=== PATIENT | male | born 1975 ===

== ENCOUNTER 2018-09-19 08:36 | Emergency (ER) | payer OTHER ==
[2018-09-19 08:45] VITALS: BMI 24.4
[2018-09-19 11:00] LABS: BASO % 0.5 % (0.0-2.0); EOS % 0.8 % (0.0-4.0); HEMOGLOBIN 15.8 g/dL (12.0-18.0); LYMPH # 1.1 K/uL (1.0-4.3); LYMPH % 19.7 % (20.0-40.0); MEAN CELL VOLUME 87.6 fl (80.0-94.0); MEAN CORPUSCULAR HEMOGLOBIN 29.9 pg (27.0-31.0); MEAN CORPUSCULAR HGB CONC 34.2 g/dL (33.0-37.0); MEAN PLATELET VOLUME 7.7 fl (7.2-11.7); MONO # 0.3 K/uL (0.0-0.8); MONO % 5.3 % (0.0-10.0); NEUT # 4.2 K/uL (1.8-7.0); NEUT % 73.7 % (50.0-75.0); NRBC % 1.8 % (0.0-0.0); RBC 5.28 Mil/uL (4.40-5.90); RED CELL DISTRIBUTION WIDTH 13.4 % (11.5-14.5); WHITE BLOOD COUNT 5.7 K/uL (4.8-10.8)
[2018-09-19 11:08] LABS: ALB/GLOB RATIO 1.2 (1.0-2.1); ALBUMIN 4.6 g/dL (3.5-5.0); ALT/SGPT 41 U/L (21-72); AST/SGOT 30 U/L (17-59); BLOOD UREA NITROGEN 11 mg/dl (9-20); CALCIUM 9.5 mg/dL (8.4-10.2); GFR NON-AFRICAN AMERICAN > 60; LIPASE 60 U/L (23-300)
[2018-09-19 11:36] LABS: URINE BILIRUBIN NEGATIVE (NEGATIVE); URINE BLOOD NEGATIVE (NEGATIVE); URINE CLARITY CLEAR (Clear); URINE COLOR YELLOW (YELLOW); URINE GLUCOSE (UA) NEG (Normal); URINE LEUKOCYTE ESTERASE NEG Leu/uL (Negative); URINE PROTEIN NEGATIVE (NEGATIVE); URINE UROBILINOGEN 0.2-1.0 mg/dL (0.2-1.0)
--- NOTE | 2018-09-19 11:49 | ED PDOC ---
HPI: Abdomen Time Seen by Provider: 09/19/18 09:00 Chief Complaint (Nursing): Abdominal Pain Chief Complaint (Provider): Abdominal Pain History Per: Senior Environmental Technician (Jason Samuel [id number]) Current Symptoms Are (Timing): Still Present Additional Complaint(s): Pérez Botello is 43 year old male with a past medical history of Hyperlipidemia, who presents to the emergency room complaining of not feeling well. Patient states he felt sick and that he had no other place will take him. He complains of abdominal pain and chest pain which has been going on for many years. pt state this pain is no different than his usual abdominal pain that is chronic. no fever. vomiting or diarrhea. no chest pain at this time. no anorexia or weight loss PMD: no provider Past Medical History Reviewed: Historical Data, Nursing Documentation, Vital Signs Vital Signs: Last Vital Signs Temp 97.6 F 09/19/18 08:44 Pulse 78 09/19/18 08:44 Resp 18 09/19/18 08:44 BP 142/89 09/19/18 08:44 Pulse Ox 99 09/19/18 08:44 - Medical History PMH: Hyperlipidemia Denies: Chronic Kidney Disease - Surgical History Surgical History: No Surg Hx - Family History Family History: States: Unknown Family Hx - Social History Current smoker - smoking cessation education provided: No Alcohol: None (last drink x5 years ago) Drugs: Denies - Allergies Allergies/Adverse Reactions: Allergies Allergy/AdvReac Type Severity Reaction Status Date / Time No Known Allergies Allergy Verified 09/19/18 09:13 Review of Systems ROS Statement: Except As Marked, All Systems Reviewed And Found Negative Constitutional: Negative for: Fever Cardiovascular: Positive for: Chest Pain Gastrointestinal: Positive for: Abdominal Pain. Negative for: Vomiting, Diarrhea Physical Exam - Reviewed Nursing Documentation Reviewed: Yes Vital Signs Reviewed: Yes - Physical Exam Appears: Positive for: Non-toxic, No Acute Distress Head Exam: Positive for: ATRAUMATIC, NORMOCEPHALIC Skin: Positive for: Normal Color, Warm, Dry Eye Exam: Positive for: Normal appearance, EOMI, PERRL ENT: Positive for: Normal ENT Inspection Neck: Positive for: Normal, Painless ROM, Supple Cardiovascular/Chest: Positive for: Regular Rate, Rhythm. Negative for: Murmur Respiratory: Positive for: Normal Breath Sounds. Negative for: Respiratory Distress Gastrointestinal/Abdominal: Positive for: Normal Exam, Bowel Sounds, Soft. Negative for: Tenderness, Distended, Guarding, Rebound, Asicites Male Genital Exam: Negative for: no hernia Back: Positive for: Normal Inspection. Negative for: L CVA Tenderness, R CVA Tenderness, Vertebral Tenderness Extremity: Positive for: Normal ROM. Negative for: Pedal Edema, Deformity Neurologic/Psych: Positive for: Alert, Oriented (x3). Negative for: Motor/Sensory Deficits - Laboratory Results Result Diagrams: 09/19/18 10:50 09/19/18 10:50 - ECG ECG Rhythm: Positive for: Sinus Rhythm (normal ) Rate: 64 O2 Sat by Pulse Oximetry: 99 (RA) Pulse Ox Interpretation: Normal Medical Decision Making Medical Decision Making: Initial Time: 10:23 Plan: abdominal pain, non tender exam. pain is chronic --Toradol 15 mg IV --Urine culture --Urinalysis --Cbc with differential --EKG --Lipase --CMP 12:32 --Troponin I Provider reviewed the ekg, urine and labs, which show benign results. \ pt tolerating po. abdomen normal exam. the patient is stable to go home. given follo wup in the clinic (pt has no insurance referred to [facility]) instructed to return if pain gets worse or any new or concerning symptoms develp. Disposition - Clinical Impression Clinical Impression: Chronic abdominal pain - Patient ED Disposition Is Patient to be Admitted: No Counseled Patient/Family Regarding: Studies Performed, Diagnosis, Need For Followup - Disposition Referrals: [facility] [Outside] Disposition: Routine/Home Disposition Time: 12:00 Condition: IMPROVED Additional Instructions: follow up with the clinic in 1-2 days return to the ED with any worsening or concerning symptoms Instructions: Chronic Pain Forms: [employer] (Mexican), [employer] (South Sudanese) Print Language: ITALIAN
[2018-09-19 13:28] VITALS: BP 165/86; RESP 17; TEMP 98.4
--- NOTE | 2018-09-19 18:46 | CARD ---
APPROVED REPORT Date of service: 09/19/2018 EKG Measurement Heart [id number] IN 132P66 [id number] <Conclusion> Normal sinus rhythm Normal ECG
[2018-09-20 18:32] VITALS: PULSE 64; O2SAT 99
== END 2018-09-19 13:41 | disposition home or self-care (01) ==
LOC: H.ER 08:36
DX: R10.9 Unspecified abdominal pain (principal); E78.5 Hyperlipidemia, unspecified; G89.29 Other chronic pain
CPT/HCPCS: 80053; 81003; 83690; 84484; 85025; 87086; 93005; 99284; J1885

== ENCOUNTER 2018-10-27 09:24 | Emergency (ER) | payer OTHER ==
[2018-10-27 09:43] VITALS: BMI 24.3
[2018-10-27] MEDS ORDERED: Iohexol 240 (50 ml) PO ONE (09:59)
[2018-10-27] MEDS ORDERED: Iohexol 240 (50 ml) ONE (10:08)
--- NOTE | 2018-10-27 10:08 | ED PDOC ---
HPI: Abdomen Time Seen by Provider: 10/27/18 09:50 Chief Complaint (Nursing): Abdominal Pain Chief Complaint (Provider): Abdominal Pain History Per: Patient History/Exam Limitations: no limitations Onset/Duration Of Symptoms: Days (x1) Current Symptoms Are (Timing): Constant Location Of Pain/Discomfort: Other (Diffuse) Associated Symptoms: denies: Fever, Vomiting, Diarrhea, Urinary Symptoms Additional Complaint(s): 43 year old male presents to the ED complaining of constant and diffuse abdominal pain that started yesterday. He also reports having intermittent chest pain today but denies pain right now. He denies vomiting and diarrhea. He states he has normal bowel movements with last bowel movement today. Denies urinary problems or fever. PMD: none Past Medical History Reviewed: Historical Data, Nursing Documentation, Vital Signs Vital Signs: Last Vital Signs Temp 98.4 F 10/27/18 09:44 Pulse 70 10/27/18 09:44 Resp 20 10/27/18 09:44 BP 153/88 H 10/27/18 09:44 Pulse Ox 99 10/27/18 09:44 - Medical History PMH: Hyperlipidemia Denies: Chronic Kidney Disease - Surgical History Surgical History: No Surg Hx - Family History Family History: States: Unknown Family Hx - Social History Current smoker - smoking cessation education provided: No Alcohol: None Drugs: Denies - Allergies Allergies/Adverse Reactions: Allergies Allergy/AdvReac Type Severity Reaction Status Date / Time No Known Allergies Allergy Verified 10/27/18 09:49 Review of Systems ROS Statement: Except As Marked, All Systems Reviewed And Found Negative Constitutional: Negative for: Fever Cardiovascular: Positive for: Chest Pain Gastrointestinal: Positive for: Abdominal Pain. Negative for: Vomiting, Diarrhea Genitourinary Male: Negative for: Dysuria, Hematuria Physical Exam - Reviewed Nursing Documentation Reviewed: Yes Vital Signs Reviewed: Yes - Physical Exam Appears: Positive for: Non-toxic, No Acute Distress Head Exam: Positive for: ATRAUMATIC, NORMOCEPHALIC Skin: Positive for: Normal Color, Warm, Dry Eye Exam: Positive for: Normal appearance Neck: Positive for: Normal, Painless ROM Cardiovascular/Chest: Positive for: Regular Rate, Rhythm. Negative for: Chest Non Tender Respiratory: Positive for: Normal Breath Sounds. Negative for: Wheezing, Respiratory Distress Gastrointestinal/Abdominal: Positive for: Tenderness (mildly tender diffusely) Back: Positive for: Normal Inspection. Negative for: L CVA Tenderness, R CVA Tenderness Extremity: Positive for: Normal ROM Neurologic/Psych: Positive for: Alert, Oriented. Negative for: Motor/Sensory Deficits - Laboratory Results Result Diagrams: 10/27/18 10:22 10/27/18 10:22 - ECG O2 Sat by Pulse Oximetry: 99 (RA) Pulse Ox Interpretation: Normal - Progress Re-evaluation Time: 16:41 Condition: Re-examined, Improved Medical Decision Making Medical Decision Making: Initial Impression: Abdominal pain and chest pain Differential for abdominal pain: gastritis, pancreatitis, small bowel obstruction, appendicitis, and colitis; for chest pain: ACS, pulmonary embolism, and musculoskeletal chest wall pain Initial Plan: --CT abd/pelvis --ECG --CMP --Lipase stat --Troponin stat --CBC --Chest X-ray --Pepcid 20mg IV --Iohexol 50mL PO 13:53 CT abd/pelvis FINDINGS: LOWER THORAX: Unremarkable. LIVER: Lucency throughout the liver indicates hepatic steatosis to a moderate degree. No mass or biliary tree dilatation appreciable. GALLBLADDER AND BILE DUCTS: Unremarkable. PANCREAS: Unremarkable. No gross lesion or ductal dilatation. SPLEEN: Unremarkable. ADRENALS: Unremarkable. No mass. KIDNEYS AND URETERS: Unremarkable. No hydronephrosis. No solid mass. VASCULATURE: Unremarkable. No aortic aneurysm. No aortic atherosclerotic calcification or mural plaque present. BOWEL: Unremarkable. No obstruction. No gross mural thickening. APPENDIX: Normal appendix. PERITONEUM: Unremarkable. No free fluid. No free air. LYMPH NODES: Unremarkable. No enlarged lymph nodes. BLADDER: Distended but thin and smooth walled. REPRODUCTIVE: Enlarged prostate gland 6.0 cm. BONES: No acute fracture. OTHER FINDINGS: None. IMPRESSION: 1. No definitive acute abdominal findings. The urinary bladder is distended in the pelvis but thin and smooth walled with no radiodense urolithiasis associated. 2. Hepatic steatosis. 3. Enlarged prostate gland 6.0 cm. 12:20 Chest X-ray FINDINGS: LUNGS: No focal consolidation. Please note that chest x-ray has limited sensitivity for the detection of pul monary masses. PLEURA: No significant pleural effusion identified. No definite pneumothorax . CARDIOVASCULAR: Heart size appears within normal limits. No atherosclerotic calcification present. OSSEOUS STRUCTURES: No acute osseous abnormality identified. VISUALIZED UPPER ABDOMEN: Unremarkable. OTHER FINDINGS: None. IMPRESSION: No focal consolidation. Scribe Attestation: Documented by James Colvin acting as a scribe for Franklyn Merlos MD. Provider Scribe Attestation: All medical record entries made by the Scribe were at my direction and personally dictated by me. I have reviewed the chart and agree that the record accurately reflects my personal performance of the history, physical exam, medical decision making, and the department course for this patient. I have also personally directed, reviewed, and agree with the discharge instructions and disposition. Disposition - Clinical Impression Clinical Impression: Abdominal pain, Steatosis, liver - Patient ED Disposition Is Patient to be Admitted: No Doctor Will See Patient In The: Office Counseled Patient/Family Regarding: Studies Performed, Diagnosis, Need For Followup - Disposition Referrals: [facility] [Outside] Disposition: Routine/Home Disposition Time: 16:42 Condition: GOOD Additional Instructions: ANABEL CANCHOLA, thank you for letting us take care of you today. Your provider was Franklyn Merlos MD and you were treated for ABD PAIN. The emergency medical care you received today was directed at your acute symptoms. If you were prescribed any medication, please fill it and take as directed. It may take several days for your symptoms to resolve. Return to the Emergency Department if your symptoms worsen, do not improve, or if you have any other problems. Please contact your doctor or call one of the physicians/clinics you have been referred to that are listed on the Patient Visit Information form that is included in your discharge packet. Bring any paperwork you were given at dis charge with you along with any medications you are taking to your follow up visit. Our treatment cannot replace ongoing medical care by a primary care provider outside of the emergency department. Thank you for allowing the [facility] team to be part of your care today. If you had an X-Ray or CT scan: A Radiologist will review the ED reading if any change in treatment is needed we will contact you. If you had a blood, urine, or wound culture: It will take several days for the results, if any change in treatment is needed we will contact you. If you had an STI test: It will take 48 hours for the results. Please call after 1 week if you have not heard back. Instructions: Stomach Ache and Stomach Upset, Nonalcoholic Fatty Liver Disease (DC)
[2018-10-27 10:31] LABS: BASO # 0.1 K/uL (0.0-0.2); EOS # 0.1 K/uL (0.0-0.7); HEMOGLOBIN 15.2 g/dL (12.0-18.0); LYMPH # 1.3 K/uL (1.0-4.3); LYMPH % 22.9 % (20.0-40.0); MEAN CELL VOLUME 85.5 fl (80.0-94.0); MEAN CORPUSCULAR HEMOGLOBIN 30.1 pg (27.0-31.0); MEAN CORPUSCULAR HGB CONC 35.1 g/dL (33.0-37.0); MEAN PLATELET VOLUME 7.4 fl (7.2-11.7); MONO # 0.3 K/uL (0.0-0.8); MONO % 5.5 % (0.0-10.0); NEUT # 3.9 K/uL (1.8-7.0); NEUT % 69.6 % (50.0-75.0); NRBC % 0.3 % (0.0-0.0); RBC 5.05 Mil/uL (4.40-5.90); RED CELL DISTRIBUTION WIDTH 13.8 % (11.5-14.5); WHITE BLOOD COUNT 5.7 K/uL (4.8-10.8)
[2018-10-27 10:36] LABS: ALB/GLOB RATIO 1.2 (1.0-2.1); ALBUMIN 4.3 g/dL (3.5-5.0); ALT/SGPT 40 U/L (21-72); AST/SGOT 32 U/L (17-59); BLOOD UREA NITROGEN 13 mg/dl (9-20); CALCIUM 9.3 mg/dL (8.4-10.2); GFR NON-AFRICAN AMERICAN > 60; LIPASE 55 U/L (23-300)
[2018-10-27] MEDS ORDERED: Iohexol 300 100 ML IJ ONE (12:12)
[2018-10-27] MEDS ORDERED: Sodium Chloride 0.9% 50 ML IV ONE (12:13)
--- NOTE | 2018-10-27 12:24 | RAD ---
HISTORY: chest pain COMPARISON: None available TECHNIQUE: Chest PA and lateral FINDINGS: LUNGS: No focal consolidation. Please note that chest x-ray has limited sensitivity for the detection of pulmonary masses. PLEURA: No significant pleural effusion identified. No definite pneumothorax . CARDIOVASCULAR: Heart size appears within normal limits. No atherosclerotic calcification present. OSSEOUS STRUCTURES: No acute osseous abnormality identified. VISUALIZED UPPER ABDOMEN: Unremarkable. OTHER FINDINGS: None. IMPRESSION: No focal consolidation.
--- NOTE | 2018-10-27 13:57 | CT ---
Date of service: 10/27/2018 PROCEDURE: CT Abdomen and Pelvis with contrast HISTORY: abdominal pain COMPARISON: None. TECHNIQUE: Following oral and intravenous contrast administration, a CT examination of the abdomen and pelvis performed from the domes of the diaphragms to the symphysis pubis with reformatted datasets provided not only axial but also sagittal and coronal series. Coronal and sagittal reformats were generated. Contrast dose: Omnipaque 300, 95 cc Radiation dose: Total exam DLP = 320.56 mGy-cm. This CT exam was performed using one or more of the following dose reduction techniques: Automated exposure control, adjustment of the mA and/or kV according to patient size, and/or use of iterative reconstruction technique. FINDINGS: LOWER THORAX: Unremarkable. LIVER: Lucency throughout the liver indicates hepatic steatosis to a moderate degree. No mass or biliary tree dilatation appreciable. GALLBLADDER AND BILE DUCTS: Unremarkable. PANCREAS: Unremarkable. No gross lesion or ductal dilatation. SPLEEN: Unremarkable. ADRENALS: Unremarkable. No mass. KIDNEYS AND URETERS: Unremarkable. No hydronephrosis. No solid mass. VASCULATURE: Unremarkable. No aortic aneurysm. No aortic atherosclerotic calcification or mural plaque present. BOWEL: Unremarkable. No obstruction. No gross mural thickening. APPENDIX: Normal appendix. PERITONEUM: Unremarkable. No free fluid. No free air. LYMPH NODES: Unremarkable. No enlarged lymph nodes. BLADDER: Distended but thin and smooth walled. REPRODUCTIVE: Enlarged prostate gland 6.0 cm. BONES: No acute fracture. OTHER FINDINGS: None. IMPRESSION: 1. No definitive acute abdominal findings. The urinary bladder is distended in the pelvis but thin and smooth walled with no radiodense urolithiasis associated. 2. Hepatic steatosis. 3. Enlarged prostate gland 6.0 cm.
[2018-10-27 17:08] VITALS: BP 133/93; PULSE 63; RESP 16; TEMP 98.2; O2SAT 98
--- NOTE | 2018-10-27 22:40 | CARD ---
APPROVED REPORT Date of service: 10/27/2018 EKG Measurement Heart [id number] 132P60 [id number] <Conclusion> Normal sinus rhythm Normal ECG
== END 2018-10-27 17:07 | disposition short-term general hospital (02) ==
LOC: H.ER 09:24
DX: R10.9 Unspecified abdominal pain (principal); K76.0 Fatty (change of) liver, not elsewhere classified; N40.0 Benign prostatic hyperplasia without lower urinary tract symptoms; E78.5 Hyperlipidemia, unspecified
CPT/HCPCS: 71046; 74177; 80053; 83690; 84484; 85025; 93005; 96374; 99285; Q9966; Q9967